=== PATIENT | male | born 1955 | race Caucasian/White ===

== ENCOUNTER → 2020-05-13 08:16 | Outpatient (BNVA) | payer OTHER, SELFPAY | PROVIDERS: Family Provider Family Medicine; PCP Family Medicine; Visit Provider Urology | DX: R97.20 Elevated prostate specific antigen [PSA] (principal); N40.1 Benign prostatic hyperplasia with lower urinary tract symptoms; N52.1 Erectile dysfunction due to diseases classified elsewhere | CPT/HCPCS: 81003; 84153 ==

== ENCOUNTER → 2020-09-16 08:30 | Outpatient (BNVA) | payer OTHER, SELFPAY | PROVIDERS: Family Provider Family Medicine; PCP Family Medicine; Visit Provider Urology | DX: N40.1 Benign prostatic hyperplasia with lower urinary tract symptoms (principal); R97.20 Elevated prostate specific antigen [PSA]; N52.1 Erectile dysfunction due to diseases classified elsewhere | CPT/HCPCS: 81003; 84153 ==

== ENCOUNTER → 2020-10-31 12:03 | Outpatient (BNVA) | payer OTHER, SELFPAY | PROVIDERS: Family Provider Family Medicine; PCP Nurse Practitioner Family; Visit Provider Nurse Practitioner Family | DX: R10.13 Epigastric pain (principal); N50.812 Left testicular pain; Q55.9 Congenital malformation of male genital organ, unspecified; Z20.822 Contact with and (suspected) exposure to COVID-19; K64.8 Other hemorrhoids; K92.1 Melena; L29.0 Pruritus ani | CPT/HCPCS: 87635 ==

== ENCOUNTER 2020-11-05 07:38 | Outpatient (CLI) | payer OTHER, SELFPAY ==
--- NOTE | 2020-11-05 08:00 | US_ITS ---
WS: [id number] SCROTAL ULTRASOUND EXAMINATION CLINICAL INFORMATION: N50.812 - Left testicular pain COMPARISON: None. FINDINGS: TESTES Normal in size and echotexture, without focal lesion. Color Doppler: Normal color Doppler flow pattern. Right testes size: 3.9 cm x 3.0 cm x 2.4 cm. Left testes size: 3.8 cm x 2.8 cm x 2.2 cm. EPIDIDYMIDES Clustered right epididymal cysts measuring 3.6 x 3.3 x 5.0 mm. Left epididymal cysts. Measuring 4.3 x 4.4 x 4.4 mm in the epididymal head. Measuring 8.3 x 8.9 x 4.2 mm in the epididymal tail. Right epididymis size: 0.7 cm x 0.9 cm x 1.0 cm. Left epididymitis size: 0.9 cm x 1.0 cm x 1.1 cm. HYDROCELE Small bilateral hydroceles. VARICOCELE Left varicoceles OTHER FINDINGS None. US/US scrotum [id number] IMPRESSION: 1. Normal vascularity in both testicles. 2. Small bilateral hydroceles 3. Bilateral epididymal cysts. 4. Left varicoceles. 5. Inguinal canals are normal in appearance.
== END 2020-11-05 07:39 | disposition home or self-care (01) ==
LOC: RAD 07:40
PROVIDERS: PCP Nurse Practitioner Family; Visit Provider Nurse Practitioner Family
DX: N50.812 Left testicular pain (principal); N43.3 Hydrocele, unspecified; N50.3 Cyst of epididymis; I86.1 Scrotal varices
CPT/HCPCS: 76870

== ENCOUNTER 2020-11-07 10:00 | Day surgery (SDC) | payer OTHER, SELFPAY ==
[2020-11-06 10:52] VITALS: BMI 23.6
--- NOTE | 2020-11-07 09:18 | P.HP_ITS ---
Same Day Surgery H&P Indication for Procedure/HPI DATE OF PROCEDURE: November 07, 2020 CHIEF COMPLAINT/INDICATIONFOR SURGICAL PROCEDURE: Blood in stool PREOP DIAGNOSIS: Blood in stool PLANNED PROCEDRUE: Operation Date: 11/07/20 11:30 Proposed Procedures p EGD 36322 R10.13(Not Applicable) - Dirk Tracy MD Medications/Allergies* Home Medications Medication Instructions Recorded Confirmed Type amlodipine 10 mg tablet 10 mg PO DAILY 10/26/19 11/06/20 History aspirin 81 mg tablet,delayed 81 mg PO DAILY 10/26/19 10/31/20 History release atorvastatin 10 mg tablet 10 mg PO DAILY 10/26/19 11/06/20 History multivitamin,[id number]-pgob-[id number] 1 tab PO DAILY 10/26/19 11/06/20 History metoprolol tartrate 50 mg tablet 50 mg PO DAILY tab 10/31/20 11/06/20 History Allergies/Adverse Reactions Allergy/AdvReac Type Severity Reaction Status Date / Time No Known Allergies Allergy Unverified 10/31/20 08:50 Pertinent History/Comorbid Conditions* Medical History (Updated 10/26/19 @ 09:16 by Alberto Jaime MD) Actinic keratosis BPH NOS w ur obs/LUTS Elevated PSA Mildly elevated PSA with benign feeling HUNTER Erectile dysfunction Primary hypertension Surgical History (Updated 10/23/19 @ 05:54 by Alberto Jaime MD) History of colonoscopy Family History (Updated 10/23/19 @ 05:54 by Alberto Jaime MD) Thyroid cancer Diabetes Social History Smoking and tobacco status: never smoked Alcohol intake: never Adopted: No Caregiver/support person: No Lives independently: No Household members: spouse Marital status: Current occupational status: employed History of recent travel: No Current gender identity: Male Pertinent Exam Findings alert, oriented x 3, clear to auscultation bilaterally, regular rate & rhythm, operative site marked and procedure specific exam findings Recommendations Surgery/Procedure today Coding Level of Care Code Acute 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
--- NOTE | 2020-11-07 10:14 | ANES.PREANE2 ---
Pre-Anesthetic Assessment Pre-Anesthetic Assessment: Height/Weight: Height 1.78 m Weight 74.843 kg Preop Diagnosis: Blood in stool Proposed Procedure: Operation Date: 11/07/20 11:30 Proposed Procedures p EGD 40720 R10.13(Not Applicable) - Dirk Tracy MD Was Beta Nick taken within 24 hours: Yes Was Clonidine taken within 24 hours: N/A Social: Social History: No alcohol and No tobacco Exam: Pre-Anes Outpt Exam: alert, oriented x 3, clear to auscultation bilaterally and regular rate & rhythm Airway: Submandibular: WNL Cervical ROM: WNL MP: 2 Dentition: Full CV/HEM: CV/HEM: HTN Anesthetic Plan: ASA status: 2 Anesthesia: MAC Risk of > 500 ml blood loss (7ml/kg in children): No PFSH Anesthesia PFSH: Medical History Actinic keratosis BPH NOS w ur obs/LUTS Elevated PSA Mildly elevated PSA with benign feeling HUNTER Erectile dysfunction Primary hypertension Surgical History History of colonoscopy Family History Other Diabetes Thyroid cancer Social History Smoking and tobacco status: never smoked Alcohol intake: never Adopted: No Caregiver/support person: No Lives independently: No Household members: spouse Marital status: Current occupational status: employed History of recent travel: No Current gender identity: Male Data Anesthesia Cardiac Studies: No Data to Display
[2020-11-07 11:02] VITALS: BP 161/74; PULSE 109; RESP 18; TEMP 37; O2SAT 95
[2020-11-07] MEDS: sodium chloride 0.9% 1,000 ML 30 ML IV (11:24)
[2020-11-07 12:43] VITALS: BP 100/60; PULSE 96; RESP 18; O2SAT 96
--- NOTE | 2020-11-07 12:46 | ANE.PACU2 ---
Inpatient post-anesthesia follow up: Vital signs: Temperature 98.6 F Pulse Rate 109 Respiratory Rate 18 Blood Pressure 161/74 Pulse Oximetry 95 Oxygen Delivery Me thod Room Air Oxygen Flow Rate Fraction of Inspir ed Oxygen
[2020-11-07 13:06] VITALS: BP 139/82; PULSE 86; RESP 18; O2SAT 83
[2020-11-09 09:29] LABS: H. Pylori / CLO Test Negative
== END 2020-11-07 13:20 | disposition home or self-care (01) ==
PROVIDERS: PCP Nurse Practitioner Family; Visit Provider Internal Medicine
PROC: 0DJ08ZZ Inspection of Upper Intestinal Tract, Via Natural or Artificial Opening Endoscopic (ICD-10-PCS; CPT 43235; principal; 2020-11-07 11:30)
DX: K92.1 Melena (principal); K29.71 Gastritis, unspecified, with bleeding; Z79.82 Long term (current) use of aspirin; N40.1 Benign prostatic hyperplasia with lower urinary tract symptoms; N13.8 Other obstructive and reflux uropathy; I10 Essential (primary) hypertension
CPT/HCPCS: 43239; 87077; 96360; 96361; J2704; J7030

== ENCOUNTER → 2020-11-27 09:14 | Outpatient (BNVA) | payer OTHER, SELFPAY | PROVIDERS: PCP Nurse Practitioner Family; Visit Provider Nurse Practitioner Family | DX: R97.20 Elevated prostate specific antigen [PSA] (principal); W57.XXXA Bitten or stung by nonvenomous insect and other nonvenomous arthropods, initial encounter; X58.XXXA Exposure to other specified factors, initial encounter | CPT/HCPCS: G0328 ==

== ENCOUNTER → 2021-03-24 08:11 | Outpatient (BNVA) | payer OTHER, SELFPAY | PROVIDERS: PCP Nurse Practitioner Family; Visit Provider Urology | DX: R97.20 Elevated prostate specific antigen [PSA] (principal); N40.1 Benign prostatic hyperplasia with lower urinary tract symptoms; N52.1 Erectile dysfunction due to diseases classified elsewhere; R35.1 Nocturia | CPT/HCPCS: 81003; 84153 ==

== ENCOUNTER 2021-04-09 11:04 | Outpatient (CLI) | payer OTHER, SELFPAY ==
--- NOTE | 2021-04-09 11:14 | XR_ITS ---
WS: [id number] XR hip LT 1V wo/w pel [id number] REASON FOR EXAM: Left hip pain FINDINGS: Mild narrowing of the left hip joint space. Moderate formation of the acetabulum. Mild subchondral sclerosis in the subarticular acetabulum. No significant bony changes in the subchondral femoral head. Femoral neck and remainder of the proxim al femur demonstrate no significant abnormality. XR/XR hip LT 1V wo/w pel [id number] IMPRESSION: Osteoarthritis of the left hip as above.
--- NOTE | 2021-04-09 11:14 | XR_ITS ---
WS: [id number] XR knee LT 1-2V [id number] REASON FOR EXAM: Pain in knee FINDINGS: Mild narrowing of the medial knee joint space with small osteophytic spurring of the medial tibial pl ateau. The lateral knee joint space is intact and preserved. Mild narrowing of the patellofemoral joint space with small patellar osteophyte formation. No focal bone abnormality. No soft tissue abnormality. XR/XR knee LT 1-2V [id number] IMPRESSION: Mild changes of osteoarthritis of the left knee as above.
== END 2021-04-09 11:05 | disposition home or self-care (01) ==
PROVIDERS: PCP Nurse Practitioner Family; Visit Provider Nurse Practitioner Family
DX: M25.552 Pain in left hip (principal); M25.562 Pain in left knee
CPT/HCPCS: 73501; 73560

== ENCOUNTER 2021-12-29 07:07 | Outpatient (CLI) | payer BC, MEDICARE, SELFPAY | END 2021-12-29 07:08 | disposition home or self-care (01) | LOC: LAB 07:09 | PROVIDERS: PCP Nurse Practitioner Family; Visit Provider Urology | DX: R97.20 Elevated prostate specific antigen [PSA] (principal) | CPT/HCPCS: 81003; 84153 ==

== ENCOUNTER 2022-01-18 05:56 | Day surgery (SDC) | payer BC, SELFPAY ==
[2022-01-14 12:37] VITALS: BMI 22.9
[2022-01-18 06:09] VITALS: BP 163/84; PULSE 83; RESP 18; TEMP 36.7; O2SAT 97
[2022-01-18] MEDS: sodium chloride 0.9% 1,000 ML 30 ML IV (06:18)
--- NOTE | 2022-01-18 07:06 | P.ANESASSM_ITS ---
Pre-Anesthetic Assessment Height/Weight: Height 1.78 m Weight 72.575 kg Temp Pulse Resp BP Pulse Ox 98.0 F 83 18 163/84 97 01/18/22 06:09 01/18/22 06:09 01/18/22 06:09 01/18/22 06:09 01/18/22 06:09 Preop Diagnosis: Blood in stool Operation Date: 01/18/22 07:30 Proposed Procedures p EGD and Colonoscopy 98503,65403,K92.1(Not Applicable) - Dirk Tracy MD s Colonoscopy(Not Applicable) - Dirk Tracy MD Familial anesthetic complications: none Was Beta Nick taken within 24 hours: Yes Was Clonidine taken within 24 hours: N/A Last intake: Intake Last Liquid Date 01/17/22 Last Liquid Time 19:00 Last Solid Date 01/16/22 Last Solid Time 21:00 Social No alcohol and No tobacco Exam alert and oriented x 3 Airway Submandibular: within normal limits Cervical ROM: within normal limits Mallampati: Class II Dentition: full History/ROS No significant history except as noted Pulmonary None reported CV/HEM Hypertension None reported Hepatic None reported GI Gastroesophageal Reflux Disease Metabolic Hyperlipidemia [facility] [place] None reported Neuropsych None reported Anesthetic Plan ASA status: 2 Anesthesia: Anesthesia Evaluation and MAC Risk of > 500 ml blood loss (7ml/kg in children): No Medications/Allergies Home Medications Medication Instructions Recorded Confirmed Last Taken Type aspirin 81 mg tablet,delayed 81 mg PO DAILY 10/26/19 01/18/22 11/05/20 History release (Adult Low Dose Aspirin) atorvastatin 10 mg tablet 10 mg PO DAILY 10/26/19 01/18/22 Unknown History multivitamin,qo-fgij-[id number] 1 tab PO DAILY 10/26/19 01/18/22 Unknown History (Complete Multivitamin) meloxicam 15 mg tablet (Mobic) 15 mg PO DAILY #90 tab 05/15/21 01/18/22 Unknown Rx amlodipine 10 mg tablet 10 mg PO DAILY #30 tab 11/19/21 01/18/22 01/18/22 Rx pantoprazole 40 mg tablet,delayed 40 mg PO BID #90 tab 12/21/21 01/18/22 01/16/22 Rx release metoprolol tartrate 50 mg tablet 50 mg PO DAILY #30 tab 01/11/22 01/18/22 01/18/22 Rx tamsulosin 0.4 mg capsule 0.4 mg PO .at bedtime #30 cap 01/11/22 01/18/22 01/16/22 Rx Allergies Allergy/AdvReac Type Severity Reaction Status Date / Time No Known Allergies Allergy Verified 01/18/22 06:07 Current Medications Generic Name Dose Route Start Last Admin Trade Name Freq PRN Reason Stop Dose Admin Sodium Chloride 1,000 mls @ 30 mls/hr 01/18/22 06:15 01/18/22 06:18 Sodium Chloride 0.9% IV 01/19/22 06:14 30 mls/hr .Q24H TAVARES Administration PFSH Anesthesia Medical History Actinic keratosis BPH NOS w ur obs/LUTS Elevated PSA Mildly elevated PSA with benign feeling HUNTER Erectile dysfunction Primary hypertension Surgical History History of colonoscopy Family History Father , at age 90 C. difficile colitis Mother , at age 82 Bowel obstruction Other Diabetes Thyroid cancer Social History Smoking and tobacco status: never smoked Alcohol intake: never Adopted: No Caregiver/support person: No Lives independently: No Household members: spouse Marital status: Current occupational status: employed History of recent travel: No Current gender identity: Male Data Anesthesia Cardiac Studies: No Data to Display
--- NOTE | 2022-01-18 07:45 | P.HP_ITS ---
Same Day Surgery H&P Indication for Procedure/HPI DATE OF PROCEDURE: January 18, 2022 CHIEF COMPLAINT/INDICATIONFOR SURGICAL PROCEDURE: Recent GI bleed PREOP DIAGNOSIS: Blood in stool PLANNED PROCEDURE: Operation Date: 01/18/22 07:30 Proposed Procedures p EGD and Colonoscopy 43656,40508,K92.1(Not Applicable) - Dirk Tracy MD s Colonoscopy(Not Applicable) - Dirk Tracy MD Medications/Allergies* Home Medications Medication Instructions Recorded Confirmed Type aspirin 81 mg tablet,delayed 81 mg PO DAILY 10/26/19 01/18/22 History release (Adult Low Dose Aspirin) atorvastatin 10 mg tablet 10 mg PO DAILY 10/26/19 01/18/22 History multivitamin,[id number] 1 tab PO DAILY 10/26/19 01/18/22 History (Complete Multivitamin) Allergies/Adverse Reactions Allergy/AdvReac Type Severity Reaction Status Date / Time No Known Allergies Allergy Verified 01/18/22 06:07 Current Medications: Generic Name Dose Route Start Last Admin Trade Name Freq PRN Reason Stop Dose Admin Sodium Chloride 1,000 mls @ 30 mls/hr 01/18/22 06:15 01/18/22 06:18 Sodium Chloride 0.9% IV 01/19/22 06:14 30 mls/hr .Q24H TAVARES Administration Pertinent History/Comorbid Conditions* Medical History (Updated 12/21/21 @ 15:41 by Dirk Tracy MD) Actinic keratosis BPH NOS w ur obs/LUTS Elevated PSA Mildly elevated PSA with benign feeling HUNTER Erectile dysfunction Primary hypertension Surgical History (Updated 10/23/19 @ 05:54 by Alberto Jaime MD) History of colonoscopy Family History (Updated 12/29/21 @ 08:14 by Reena Hill LPN) Father, at age 90 Mother, at age 82 C. 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
[2022-01-18 08:08] VITALS: BP 92/60; PULSE 62; RESP 20; TEMP 36.1; O2SAT 95
--- NOTE | 2022-01-18 08:09 | ANE.PACU2 ---
Inpatient post-anesthesia follow up: Airway intact: Yes Vital signs: Temperature 98.0 F Pulse Rate 83 Respiratory Rate 18 Blood Pressure 163/84 Pulse Oximetry 97 Oxygen Delivery Me thod Room Air Oxygen Flow Rate Fraction of Inspir ed Oxygen Hydration adequate: Yes Nausea and vomiting: No Pain level: 1 Mental status: Baseline
[2022-01-18 08:28] VITALS: BP 138/78; PULSE 62; RESP 18; O2SAT 94
[2022-01-19 08:16] LABS: H. Pylori / CLO Test Negative
== END 2022-01-18 08:40 | disposition home or self-care (01) ==
PROVIDERS: PCP Nurse Practitioner Family; Visit Provider Internal Medicine
PROC: 0DJ08ZZ Inspection of Upper Intestinal Tract, Via Natural or Artificial Opening Endoscopic (ICD-10-PCS; CPT 43235; principal; 2022-01-18 07:30)
PROC: 0DJD8ZZ Inspection of Lower Intestinal Tract, Via Natural or Artificial Opening Endoscopic (ICD-10-PCS; CPT 45378; 2022-01-18 07:30)
DX: K92.1 Melena (principal); K57.30 Diverticulosis of large intestine without perforation or abscess without bleeding; K29.70 Gastritis, unspecified, without bleeding; I10 Essential (primary) hypertension; K21.9 Gastro-esophageal reflux disease without esophagitis; N40.1 Benign prostatic hyperplasia with lower urinary tract symptoms; N13.8 Other obstructive and reflux uropathy
CPT/HCPCS: 43239; 45378; 87077; J2370; J2704; J7030

== ENCOUNTER → 2022-06-01 10:15 | Outpatient (BNVA) | payer BC, SELFPAY | PROVIDERS: PCP Nurse Practitioner Family; Visit Provider Family Medicine | DX: I10 Essential (primary) hypertension (principal); R07.89 Other chest pain | CPT/HCPCS: 80053; 80061; 82043; 85025 ==

== ENCOUNTER → 2022-12-14 09:18 | Outpatient (BNVA) | payer BC, SELFPAY | PROVIDERS: PCP Family Medicine; Visit Provider Internal Medicine Interventional Cardiology | DX: R97.20 Elevated prostate specific antigen [PSA] (principal) | CPT/HCPCS: 84153 ==

== ENCOUNTER → 2023-02-07 08:11 | Outpatient (BNVA) | payer BC, SELFPAY | PROVIDERS: PCP Family Medicine; Visit Provider Family Medicine | DX: E78.5 Hyperlipidemia, unspecified (principal) | CPT/HCPCS: 80053; 80061 ==

== ENCOUNTER → 2023-06-22 08:05 | Outpatient (BNVA) | payer BC, SELFPAY | PROVIDERS: PCP Family Medicine; Visit Provider Family Medicine | DX: N40.1 Benign prostatic hyperplasia with lower urinary tract symptoms (principal) | CPT/HCPCS: 84153; G0103 ==

== ENCOUNTER → 2023-12-05 07:26 | Outpatient (BNVA) | payer BC, SELFPAY | PROVIDERS: PCP Family Medicine; Visit Provider Nurse Practitioner Family | DX: R97.20 Elevated prostate specific antigen [PSA] (principal) | CPT/HCPCS: G0103 ==

== ENCOUNTER → 2023-12-16 08:52 | Outpatient (BNVA) | payer BC, SELFPAY | PROVIDERS: PCP Family Medicine; Visit Provider Family Medicine | DX: Z13.6 Encounter for screening for cardiovascular disorders (principal); E78.5 Hyperlipidemia, unspecified | CPT/HCPCS: 80053; 80061; 82043; 85025; G0103 ==

== ENCOUNTER → 2023-12-22 07:38 | Outpatient (BNVA) | payer BC, SELFPAY | PROVIDERS: PCP Family Medicine; Visit Provider Family Medicine | DX: N45.1 Epididymitis (principal) | CPT/HCPCS: 80053 ==

== ENCOUNTER → 2024-03-09 08:43 | Outpatient (BNVA) | payer BC, SELFPAY | PROVIDERS: PCP Family Medicine; Visit Provider Family Medicine | DX: I10 Essential (primary) hypertension (principal) | CPT/HCPCS: 80053; 81000 ==

== ENCOUNTER → 2024-05-11 08:16 | Outpatient (BNVA) | payer BC, SELFPAY | PROVIDERS: PCP Family Medicine; Visit Provider Family Medicine | DX: R97.20 Elevated prostate specific antigen [PSA] (principal) | CPT/HCPCS: G0103 ==

== ENCOUNTER → 2024-11-08 08:10 | Outpatient (BNVA) | payer MEDICARE, OTHER, SELFPAY | PROVIDERS: PCP Family Medicine; Visit Provider Urology | DX: R97.20 Elevated prostate specific antigen [PSA] (principal) | CPT/HCPCS: 84153 ==

== ENCOUNTER → 2025-06-06 08:28 | Outpatient (BNVA) | payer MEDICARE, SELFPAY | PROVIDERS: PCP Family Medicine; Visit Provider Family Medicine | DX: R97.20 Elevated prostate specific antigen [PSA] (principal) | CPT/HCPCS: 84153 ==

== ENCOUNTER → 2025-06-25 09:09 | Outpatient (BNVA) | payer MEDICARE, SELFPAY | PROVIDERS: PCP Family Medicine; Visit Provider Family Medicine | DX: N18.31 Chronic kidney disease, stage 3a (principal) | CPT/HCPCS: 80053; 80061; 85025 ==